=== PATIENT | male | born 1970 | race Caucasian/White ===

== ENCOUNTER → 2018-07-06 | Outpatient (CLI) | payer BC ==
--- NOTE | 2018-07-12 13:43 | HM ---
HOLTER MONITOR REPORT The patient was monitored for 24 hours. Baseline rhythm is sinus mechanism with normal conduction. The average rate 55 beats per minute. Minimum 41 and maximum 100 beats per minute. Ventricular ectopic activity was not present. Supraventricular ectopic activity was present in the form of rare single PACs. No symptoms were reported. CONCLUSION: 1. Sinus bradycardia baseline rhythm. 2. No ventricular ectopic activity. 3. Rare supraventricular ectopic activity. 4. No symptoms were reported. MMODL / IJN: [id number] /
== END | disposition home or self-care (01) ==
LOC: RADECHMAIN 12:12
PROVIDERS: ATTEND Family Medicine
DX: I49.3 Ventricular premature depolarization (principal)
CPT/HCPCS: 93225; 93226

== ENCOUNTER → 2021-10-28 | Outpatient (CLI) | payer BC ==
[~2021-10-28] MED LIST: CASIRIVIMAB (REGN10933) (EUA) 600 MG, IMDEVIMAB (REGN10987) (EUA) 600 MG in SODIUM CHLO... IVPB NR; SODIUM CHLORIDE 0.9% 50 ML IVPB NR; SODIUM CHLORIDE 0.9% 500 ML 500 ML in EMPTY BAG 1 BAG IV PRN
[2021-10-28 08:52] VITALS: TEMP 97.3
[2021-10-28 09:57] VITALS: BP 135/83; PULSE 50; RESP 16
== END | disposition home or self-care (01) ==
LOC: PROCWHC3 07:56
PROVIDERS: ATTEND Family Medicine
DX: U07.1 COVID-19 (principal)
CPT/HCPCS: 96360; Q0244; M0243

== ENCOUNTER 2025-06-17 08:10 | Day surgery (SDC) | payer BC ==
[2025-06-17 08:38] VITALS: TEMP 97.8
[2025-06-17] MEDS: IV FLUID CONTINUATION 1,000 ML IV ONE ×2 (08:50→09:54)
[2025-06-17] MEDS: LACTATED RINGERS 1,000 ML IV SCH (08:51)
[2025-06-17] MEDS ORDERED: PROPOFOL 10 MG/ML 20 ML VIAL IV ONE (09:37)
--- NOTE | 2025-06-17 09:51 | P.PCN ---
Date of Procedure: 06/17/25 Procedure(s) Performed: BRIEF HISTORY: Patient is a 55-year-old pleasant white male scheduled for an elective colonoscopy as a part of screening for colon cancer. PROCEDURE PERFORMED: Colonoscopy. PREOPERATIVE DIAGNOSIS: Screening for colon cancer. IV sedation per Anesthesia. PROCEDURE: After informed consent was obtained, the patient, was brought into the endoscopy unit. IV sedation was administered by Anesthesia under continuous monitoring. Digital rectal examination was normal. Initially the Olympus CF-160 flexible video colonoscope was then inserted in the rectum, gradually advanced into the cecum without any difficulty. Careful examination was performed as the scope was gradually being withdrawn. Ileocecal valve and the appendiceal orifice were visualized and appeared normal. Prep was excellent. Mucosa of the cecum, ascending colon, transverse colon, descending colon, sigmoid colon, and rectum appeared normal. Scattered sigmoid diverticulosis. Retroflexion was performed in the rectum and no lesions were seen. The patient tolerated the procedure well. IMPRESSION: Normal-appearing colon from rectum to cecum with no evidence of colorectal neoplasia. Scattered sigmoid diverticulosis. RECOMMENDATIONS: Findings of this examination were discussed with the patient as well as his family. He was advised to have repeat screening colonoscopy in 10 years.
[2025-06-17 10:16] VITALS: BP 123/81; PULSE 52; RESP 16
== END 2025-06-17 10:30 | disposition home or self-care (01) ==
LOC: ORWHC2ENDO 08:10
PROVIDERS: ATTEND Internal Medicine Gastroenterology
DX: Z12.11 Encounter for screening for malignant neoplasm of colon (principal); K57.30 Diverticulosis of large intestine without perforation or abscess without bleeding; Z98.890 Other specified postprocedural states
CPT/HCPCS: 45378; J2704